=== PATIENT | female | born 2000 | race Caucasian/White ===

== ENCOUNTER → 2021-11-21 | Emergency (ER) | payer SELFPAY ==
--- NOTE | 2021-11-22 01:02 | NUR ---
pt left without being triaged.
== END | disposition left against medical advice (07) ==
LOC: ER 21:14
DX: Z53.21 Procedure and treatment not carried out due to patient leaving prior to being seen by health care provider (principal)

== ENCOUNTER 2022-05-06 17:08 | Emergency (ER) | payer BC ==
[~2022-05-06] VITALS: Ht 160 cm; Wt 59.0 kg
[2022-05-06 17:59] LABS: *BILIRUBIN,URIN NEGATIVE (NEGATIVE); *CLARITY,URINE CLEAR (CLEAR); *COLOR,URINE YELLOW (YELLOW); *KETONES,URINE NEGATIVE (NEGATIVE); *UROBILINOGEN,URINE 0.2 E.U./dl (NORMAL); LEUKOCYTE ESTERASE ,URINE NEGATIVE (NEGATIVE); NITRITE, URINE NEGATIVE (NEGATIVE); UGLUCOSE NEGATIVE (NEGATIVE)
[2022-05-06 18:01] LABS: *BLOOD, URINE TRACE (NEGATIVE)
[2022-05-06 18:02] LABS: *URINE HCG, QUAL NEGATIVE (NEGATIVE)
[2022-05-06 18:29] LABS: BACTERIA,URINE NONE SEEN /HPF (NONE SEEN); RBC,URINE 0-3 /HPF (0-3); SQUAMOUS EPITHELIAL CELL,UR FEW /HPF (NONE SEEN); WBC,URINE NONE SEEN /HPF (0-3)
[2022-05-06 18:30] LABS: URINE AMORPHOUS URATE MODERATE /HPF
[2022-05-06 18:39] VITALS: BP 131/80
--- NOTE | 2022-05-06 18:39 | NUR ---
Patient discharged to home in stable condition. Written and verbal after care instructions given. Patient verbalizes understanding of instructions. Stressed follow up or return to ER for worsening s/s.
== END 2022-05-06 18:39 | disposition home or self-care (01) ==
LOC: ER 17:08
DX: R10.2 Pelvic and perineal pain (principal); Z91.040 Latex allergy status
CPT/HCPCS: 84703; A4663